=== PATIENT | male | born 1975 | race Caucasian/White ===

== ENCOUNTER 2023-04-22 07:28 | Day surgery (SDC) | payer OTHER ==
[~2023-04-22] VITALS: Ht 180.3 cm; Wt 116.7 kg
[2023-04-22] MEDS ORDERED: AMLO5 (07:55)
[2023-04-22] MEDS ORDERED: ATOR40TA (07:55)
[2023-04-22] MEDS ORDERED: ASPI81CH (07:55)
[2023-04-22] MEDS ORDERED: ESCI10 (07:56)
[2023-04-22] MEDS ORDERED: METF500 (07:56)
[2023-04-22] MEDS ORDERED: METO50 (07:56)
[2023-04-22] MEDS ORDERED: Lisinopril-Hct1 EAC4 (07:56)
[2023-04-22] MEDS ORDERED: Selenomax200 MCG (07:56)
[2023-04-22 09:53] VITALS: BP 130/75
--- NOTE | 2023-04-22 09:57 | NUR ---
[facility]22[facility]23 [facility], SITE WNL
--- NOTE | 2023-04-22 09:57 | NUR ---
04/22/23 0957 [facility] VERBAL ORDER DR JIMI BAKER FOR IV IN FOOT, ONE ATTEMPT, IV PATENT, ORDER RECEIVED BY RDS,RN
== END 2023-04-22 09:37 | disposition home or self-care (01) ==
LOC: ORSCSDS 07:28
PROVIDERS: Internal Medicine Gastroenterology
PROC: 0DBL8ZX Excision of Transverse Colon, Via Natural or Artificial Opening Endoscopic, Diagnostic (ICD-10-PCS; principal; 2023-04-22 08:45)
DX: Z12.11 Encounter for screening for malignant neoplasm of colon (principal); D12.3 Benign neoplasm of transverse colon; K64.8 Other hemorrhoids; E11.9 Type 2 diabetes mellitus without complications; Z87.891 Personal history of nicotine dependence; E66.9 Obesity, unspecified; Z68.35 Body mass index [BMI] 35.0-35.9, adult; Z79.82 Long term (current) use of aspirin; Z79.84 Long term (current) use of oral hypoglycemic drugs; Z79.899 Other long term (current) drug therapy
CPT/HCPCS: 82947; 88305; J2704; J7120